=== PATIENT | female | born 1980 | race Caucasian/White ===

== ENCOUNTER 2017-10-10 17:45 | Emergency (ER) | payer OTHER ==
[~2017-10-10] VITALS: Ht 160 cm; Wt 95.0 kg
[~2017-10-10 17:45] MED LIST: AZIT250T3 PO; BENZ100 PO
[2017-10-10 17:48] VITALS: BP 124/78; PULSE 67; RESP 16; TEMP 98.6; O2SAT 97
[2017-10-10 18:02] LABS: BILIRUBIN, URINE NEG (NEG); BLOOD, URINE LARGE (NEG); GLUCOSE,URINE NEG (NEG); KETONE, URINE NEG (NEG); NITRITE,URINE NEG (NEG); PH, URINE 5.5 (5.0-8.5); URINE COLOR YELLOW (YELLW/STRAW); URINE LEUKOCYTE ESTERASE NEG (NEG)
[2017-10-10] MEDS ORDERED: SODIUM CHLOR 0.9% 1000 ML INJ 1,000 ML IV ONE ×2 (18:03→18:15)
[2017-10-10 18:09] LABS: MUCUS URINE FEW /lpf (OCC); SQUAMOUS EPITHELIAL CELL URINE 0-5 /hpf (0-5)
--- NOTE | 2017-10-10 18:11 | PD ---
HPI Chief Complaint: Abdominal Pain Time Seen by Provider: 17:51 Travel History International Travel<30 days: No Contact w/Intl Traveler<30days: No Traveled to known affect area: No History of Present Illness HPI The patient is a 37-year-old female who presents to the emergency department for right lower quadrant abdominal pain. The patient states she started her menstrual cycle yesterday and then this morning developed lower abdominal cramping. She now complains of increasing lower abdominal cramping in the right lower abdomen. She does have a history of cramps with her menstrual cycles, but states this pain was worse. She does have a history of previous LEEP procedure that was performed in February 2017 as well as a history of tubal ligation and appendectomy. She does complain of mild nausea without any vomiting or diarrhea. She is currently having vaginal bleeding, normal menstrual cycle, but did have some spotting 2 weeks ago. The patient took a test at that time which was negative. She denies any fever, chills, or sweats. She denies any unusual vaginal discharge, but did take Diflucan 1 week ago for a yeast infection which appears to have resolved per her report. Symptoms are moderate. PFSH Past Medical History Diminished Hearing: No ?: Not LMP: YEST : 5 Para: 3 Miscarriage: 2 Tubal Ligation: Yes Past Surgical History Appendectomy: Yes Social History Alcohol Use: Yes (social ETOH) Tobacco Use: No Substance Use: No Allergies-Medications (Allergen,Severity, Reaction): Coded Allergies: latex (Verified Allergy, Severe, Rash, 10/10/17) No Known Allergies (Unverified Adverse Reaction, Unknown, 10/10/17) Reported Meds & Prescriptions Reported Meds & Active Scripts Active [place] (Hydrocodone-Acetaminophen) 5 Mg-325 Mg Tab 1 Tab PO Q6H PRN Ibuprofen 600 Mg Tab 600 Mg PO Q6H PRN Review of Systems Except as stated in HPI: all other systems reviewed are Neg General / Constitutional: No: Fever Cardiovascular: No: Chest Pain or Discomfort Respiratory: No: Shortness of Breath Gastrointestinal: Positive: Nausea, No: Vomiting, Diarrhea, Abdominal Pain Genitourinary: Positive: Pelvic Pain, Vaginal Bleeding, No: Dysuria, Hematuria , Discharge Skin: No Rash Physical Exam Narrative GENERAL: Awake, alert, pleasant 37-year-old female who appears her stated age and is in no acute respiratory distress. SKIN: Focused skin assessment warm/dry. HEAD: Atraumatic. Normocephalic. EYES: No injection or drainage. ENT: No nasal bleeding or discharge. Mucous membranes pink and moist. NECK: Trachea midline. No JVD. CARDIOVASCULAR: Regular rate and rhythm. No murmur appreciated. RESPIRATORY: No accessory muscle use. Clear to auscultation. Breath sounds equal bilaterally. GASTROINTESTINAL: Abdomen soft, tender to palpation right lower quadrant to suprapubic region. No guarding or rigidity. Back: No CVA tenderness. Pelvic: The exam was performed in the presence of a female nurse. External examination reveals no rashes or lesions. Speculum examination reveals blood in the vaginal vault. Cervix is closed. MUSCULOSKELETAL: No obvious deformities. No clubbing. No cyanosis. No edema. NEUROLOGICAL: Awake and alert. No obvious cranial nerve deficits. Motor grossly within normal limits. Normal speech. PSYCHIATRIC: Appropriate mood and affect; insight and judgment normal. Data Data Last Documented VS Vital Signs Date Time Temp Pulse Resp B/P (MAP) Pulse Ox O2 Delivery O2 Flow Rate FiO2 10/10/17 17:48 98.6 67 16 124/78 (93) 97 Orders Orders Ed Urine Pregnancytest Poc (10/10/17 17:53) Urinalysis - C+S If Indicated (10/10/17 17:53) Complete Blood Count With Diff (10/10/17 18:03) Comprehensive Metabolic Panel (10/10/17 18:03) Iv Access Insert/Monitor (10/10/17 18:03) Sodium Chlor 0.9% 1000 Ml Inj (Ns 1000 M (10/10/17 18:03) Ondansetron Odt (Zofran Odt) (10/10/17 18:15) Us Pelvis Comp W Doppler (10/10/17 18:03) Ketorolac Inj (Toradol Inj) (10/10/17 18:15) Morphine Inj (Morphine Inj) (10/10/17 18:15) Sodium Chlor 0.9% 1000 Ml Inj (Ns 1000 M (10/10/17 18:15) Labs Laboratory Tests Test 10/10/17 17:55 10/10/17 18:35 Urine Color YELLOW Urine Turbidity CLOUDY Urine pH 5.5 Urine Specific [place] GREATER/EQUAL 1.030 Urine Protein TRACE mg/dL Urine Glucose (UA) NEG mg/dL Urine Ketones NEG mg/dL Urine Occult Blood LARGE Urine Nitrite NEG Urine Bilirubin NEG Urine Urobilinogen 0.2 MG/DL Urine Leukocyte Esterase NEG Urine RBC 50-99 /hpf Urine WBC 9-14 /hpf Urine Squamous Epithelial Cells 0-5 /hpf Urine Mucus FEW /lpf Microscopic Urinalysis Comment CULT NOT INDICATED White Blood Count 11.3 TH/MM3 Red Blood Count 4.77 MIL/MM3 Hemoglobin 13.4 GM/DL Hematocrit 39.8 % Mean Corpuscular Volume 83.5 FL Mean Corpuscular Hemoglobin 28.2 PG Mean Corpuscular Hemoglobin Concent 33.8 % Red Cell Distribution Width 13.3 % Platelet Count 233 TH/MM3 Mean Platelet Volume 8.8 FL Neutrophils (%) (Auto) 79.2 % Lymphocytes (%) (Auto) 12.5 % Monocytes (%) (Auto) 3.9 % Eosinophils (%) (Auto) 0.2 % Basophils (%) (Auto) 4.2 % Neutrophils # (Auto) 9.0 TH/MM3 Lymphocytes # (Auto) 1.4 TH/MM3 Monocytes # (Auto) 0.4 TH/MM3 Eosinophils # (Auto) 0.0 TH/MM3 Basophils # (Auto) 0.5 TH/MM3 CBC Comment DIFF FINAL Differential Comment Blood Urea Nitrogen 14 MG/DL Creatinine 0.84 MG/DL Random Glucose 97 MG/DL Total Protein 7.6 GM/DL Albumin 3.8 GM/DL Calcium Level 8.7 MG/DL Alkaline Phosphatase 76 U/L Aspartate Amino Transf (AST/SGOT) 15 U/L [place] Aminotransferase (ALT/SGPT) 24 U/L Total Bilirubin 0.6 MG/DL Sodium Level 140 MEQ/L Potassium Level 3.7 MEQ/L Chloride Level 106 MEQ/L Carbon Dioxide Level 26.4 MEQ/L Anion Gap 8 MEQ/L Estimat Glomerular Filtration Rate 77 ML/MIN [facility] Medical Decision Making Medical Screen Exam Complete: Yes Emergency Medical Condition: Yes Medical Record Reviewed: Yes Interpretation(s) Laboratory Tests Test 10/10/17 17:55 10/10/17 18:35 Urine Color YELLOW Urine Turbidity CLOUDY Urine pH 5.5 Urine Specific [place] GREATER/EQUAL 1.030 Urine Protein TRACE mg/dL Urine Glucose (UA) NEG mg/dL Urine Ketones NEG mg/dL Urine Occult Blood LARGE Urine Nitrite NEG Urine Bilirubin NEG Urine Urobilinogen 0.2 MG/DL Urine Leukocyte Esterase NEG Urine RBC 50-99 /hpf Urine WBC 9-14 /hpf Urine Squamous Epithelial Cells 0-5 /hpf Urine Mucus FEW /lpf Microscopic Urinalysis Comment CULT NOT INDICATED White Blood Count 11.3 TH/MM3 Red Blood Count 4.77 MIL/MM3 Hemoglobin 13.4 GM/DL Hematocrit 39.8 % Mean Corpuscular Volume 83.5 FL Mean Corpuscular Hemoglobin 28.2 PG Mean Corpuscular Hemoglobin Concent 33.8 % Red Cell Distribution Width 13.3 % Platelet Count 233 TH/MM3 Mean Platelet Volume 8.8 FL Neutrophils (%) (Auto) 79.2 % Lymphocytes (%) (Auto) 12.5 % Monocytes (%) (Auto) 3.9 % Eosinophils (%) (Auto) 0.2 % Basophils (%) (Auto) 4.2 % Neutrophils # (Auto) 9.0 TH/MM3 Lymphocytes # (Auto) 1.4 TH/MM3 Monocytes # (Auto) 0.4 TH/MM3 Eosinophils # (Auto) 0.0 TH/MM3 Basophils # (Auto) 0.5 TH/MM3 CBC Comment DIFF FINAL Differential Comment Blood Urea Nitrogen 14 MG/DL Creatinine 0.84 MG/DL Random Glucose 97 MG/DL Total Protein 7.6 GM/DL Albumin 3.8 GM/DL Calcium Level 8.7 MG/DL Alkaline Phosphatase 76 U/L Aspartate Amino Transf (AST/SGOT) 15 U/L [place] Aminotransferase (ALT/SGPT) 24 U/L Total Bilirubin 0.6 MG/DL Sodium Level 140 MEQ/L Potassium Level 3.7 MEQ/L Chloride Level 106 MEQ/L Carbon Dioxide Level 26.4 MEQ/L Anion Gap 8 MEQ/L Estimat Glomerular Filtration Rate 77 ML/MIN Differential Diagnosis Differential diagnosis includes dysmenorrhea, ovarian torsion, ovarian cyst, ectopic , PID, cervicitis, vaginitis, UTI, nephrolithiasis. Narrative Course IV was established, labs are drawn and sent, and the patient was placed on cardiac telemetry monitoring and continuous pulse oximetry monitoring. The patient was administered Toradol, morphine, Zofran, and IV fluids. Bedside UA test was obtained, was negative. UA was sent to lab. A pelvic exam was performed in the presence of a female nurse. Ultrasound was ordered to evaluate for possible cyst/torsion. UA reveals RBCs consistent with current menstrual cycle. UA test was negative. White count is minimally elevated at 11.3. LFTs and lipase are within normal limits. Pelvic exam was performed, there is minimal blood in the vaginal vault but no other abnormalities noted. The patient's pain was reevaluated at 7:20 PM, and had significantly improved after the administration of pain medications. Ultrasound reveals no acute disease. Symptoms have improved, patient be discharged home. She will be provided a copy of her ultrasound results and lab results at discharge. 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 Diagnosis Primary Impression: Pelvic pain Additional Impression: Dysmenorrhea Patient Instructions: General Instructions, Narcotic given in the ED Additional Instructions: Please provide the patient a copy of her ultrasound results and lab results at discharge. Medications as directed. Follow-up with your primary physician. Return if symptoms worsen or progress. Med/Other Pt SpecificInfo: Prescription(s) given Scripts Hydrocodone-Acetaminophen ([place]) 5 Mg-325 Mg Tab 1 TAB PO Q6H Y for PAIN, #10 TAB 0 Refills Prov: Braeden Garcia MD 10/10/17 Ibuprofen (Ibuprofen) 600 Mg Tab 600 MG PO Q6H Y for Pain/Inflammation, #20 TAB 0 Refills Prov: Braeden Garcia MD 10/10/17 Disposition: 01 DISCHARGE HOME Condition: Stable Braeden Garcia MD October 10, 2017 18:11
[2017-10-10] MEDS ORDERED: KETOROLAC TROMETHAMINE 30 MG/ML (IVP) VIAL IV PUSH ONE (18:15)
[2017-10-10] MEDS ORDERED: ONDANSETRON ODT 4 MG TAB PO ONE (18:15)
[2017-10-10] MEDS ORDERED: MORPHINE SULFATE 4 MG/ML INJ IV PUSH ONE (18:15)
[2017-10-10 18:47] LABS: BASOPHIL # 0.5 TH/MM3 (0-0.2); BASOPHIL % 4.2 % (0.0-2.0); EOSINOPHIL % 0.2 % (0.0-4.0); HEMATOCRIT 39.8 % (35.0-46.0); HEMOGLOBIN 13.4 GM/DL (11.6-15.3); LYMPH % 12.5 % (9.0-44.0); LYMPHOCYTE # 1.4 TH/MM3 (1.0-4.8); MEAN CELL VOLUME 83.5 FL (80.0-100.0); MEAN CORPUSCULAR HEMOGLOBIN 28.2 PG (27.0-34.0); MEAN CORPUSCULAR HGB CONC 33.8 % (32.0-36.0); MEAN PLATELET VOLUME 8.8 FL (7.0-11.0); MONO % 3.9 % (0.0-8.0); MONOCYTE # 0.4 TH/MM3 (0-0.9); NEUT % 79.2 % (16.0-70.0); PLATELET COUNT 233 TH/MM3 (150-450); RED BLOOD COUNT 4.77 MIL/MM3 (4.00-5.30); RED CELL DISTRIBUTION WIDTH 13.3 % (11.6-17.2); WHITE BLOOD COUNT 11.3 TH/MM3 (4.0-11.0)
[2017-10-10 18:54] LABS: CHLORIDE 106 MEQ/L (98-107); SODIUM (NA) 140 MEQ/L (136-145)
[2017-10-10 18:57] LABS: CALCIUM 8.7 MG/DL (8.5-10.1)
[2017-10-10 18:58] LABS: ALBUMIN 3.8 GM/DL (3.4-5.0); BICARBONATE 26.4 MEQ/L (21.0-32.0); BLOOD UREA NITROGEN 14 MG/DL (7-18); GLUCOSE,RANDOM 97 MG/DL (74-106)
[2017-10-10 19:01] LABS: ALT (GPT) 24 U/L (10-53); AST (GOT) 15 U/L (15-37); CREATININE 0.84 MG/DL (0.50-1.00); GLOMERULAR FILTRATION RATE 77 ML/MIN (>89)
[2017-10-10 19:02] LABS: TOTAL BILIRUBIN ADULT 0.6 MG/DL (0.2-1.0); TOTAL PROTEIN 7.6 GM/DL (6.4-8.2)
[2017-10-10 19:04] LABS: ALKALINE PHOSPHATASE 76 U/L (45-117)
[2017-10-10] MEDS ORDERED: IBUP-232 PO (19:28)
[2017-10-10] MEDS ORDERED: NORC5TAB PO (19:28)
--- NOTE | 2017-10-10 19:38 | RADRPT ---
EXAM DATE/TIME: 10/10/2017 18:59 [place] COMPARISON: No previous studies available for comparison. INDICATIONS : Pelvic pain. MEDICAL HISTORY : . SURGICAL HISTORY : Appendectomy. Tubal ligation. Leep procedure february,. ENCOUNTER: Initial ACUITY: 3 days PAIN SCORE: 4/10 LOCATION: Bilateral pelvis MEASUREMENTS: UTERUS: 8.5 x 6.6 x 4.0 cm ENDOMETRIAL STRIPE: 4 mm RIGHT OVARY: 3.5 x 2.2 x 2.0 cm LEFT OVARY: 4.0 x 3.1 x 2.7 cm FINDINGS: UTERUS: The myometrium has homogeneous echotexture without mass. RIGHT OVARY: Ovary contains no mass or significant cystic lesion. LEFT OVARY: Ovary contains no mass or significant cystic lesion. MISCELLANEOUS: No free fluid. CONCLUSION: No acute disease. Flakito Lyons MD on October 10, 2017 at 19:35 Board Certified Radiologist. This report was verified electronically.
[2017-10-10 19:56] VITALS: BP 156/88; TEMP 98.3
== END 2017-10-10 20:13 | disposition home or self-care (01) ==
LOC: PHED 17:45
DX: R10.2 Pelvic and perineal pain (principal); N94.6 Dysmenorrhea, unspecified; R11.0 Nausea
CPT/HCPCS: 76856; 80053; 81001; 84703; 85025; 93975; 96361; 96374; 96375; 99284; J1885; J2270; J7030